=== PATIENT | male | born 1990 ===

== ENCOUNTER 2017-07-04 18:18 | Emergency (ER) | payer MEDICAID ==
[2017-07-04 18:25] VITALS: TEMP 98.1
[2017-07-04] MEDS ORDERED: Albuterol-Ipratrop 3 mg / 0.5 (3 ml) UD ONE (18:26)
[2017-07-04] MEDS ORDERED: Magnesium Sulfate 2 GM in Sodium Chloride 0.9% 100 ML IVPB ONE (18:29)
[2017-07-04] MEDS ORDERED: Sodium Chloride 0.9% 500 ML IV STA (18:30)
[2017-07-04] MEDS: Albuterol-Ipratrop 3 mg / 0.5 (3 ml) UD IH SCH ×3 (18:37→19:06)
[2017-07-04 18:49] LABS: BASO # 0.03 K/mm3 (0.0-2.0); BASO % 0.5 % (0.0-3.0); EOS # 0.5 (0.0-0.7); EOS % 9.3 % (1.5-5.0); GRAN # 1.93 (1.4-6.5); GRAN % 33.8 % (50.0-68.0); HEMOGLOBIN 13.8 g/dL (14.0-18.0); LYMPH # 2.7 (1.2-3.4); MEAN CELL VOLUME 84.1 fl (80.0-105.0); MEAN CORPUSCULAR HEMOGLOBIN 28.1 pg (25.0-35.0); MEAN CORPUSCULAR HGB CONC 33.4 g/dl (31.0-37.0); MEAN PLATELET VOLUME 9.7 fl (7.0-11.0); MONO # 0.5 (0.1-0.6); MONO % 8.4 % (1.0-6.0); RBC 4.91 10^6/uL (3.5-6.1); RED CELL DISTRIBUTION WIDTH 12.8 % (11.5-14.5); WHITE BLOOD COUNT 5.7 10^3/ul (4.5-11.0)
--- NOTE | 2017-07-04 19:04 | ED PDOC ---
Arrival/HPI <Gavin Pantoja - Last Filed: 07/04/17 20:23> - General Historian: Patient - History of Present Illness Time/Duration: < week (5 days) Symptom Onset: Sudden Symptom Course: Unchanged <Migue Baird - Last Filed: 07/06/17 09:32> - General Chief Complaint: Shortness Of Breath Time Seen by Provider: 07/04/17 18:29 - History of Present Illness Narrative History of Present Illness (Text): 07/04/17 18:26 27 year old male, with past medical history of chronic asthma, presents to the emergency department complaining of cough and asthma exacerbation for the past 5 days. Patient reports experiencing congestion with associated thick productive cough with wheezing. Denies of any fever, chills, chest pain, shortness of breath, or any other complaints at this time. (Migue Baird) Past Medical History - Provider Review Nursing Documentation Reviewed: Yes - Infectious Disease Hx of Infectious Diseases: None - Cardiac Hx Cardiac Disorders: No - Pulmonary Hx Respiratory Disorders: Yes Hx Asthma: Yes - Neurological Hx Neurological Disorder: No - HEENT Hx HEENT Disorder: No - Renal Hx Renal Disorder: No - Endocrine/Metabolic Hx Endocrine Disorders: No - Hematological/Oncological Hx Blood Disorders: No - Integumentary Hx Dermatological Disorder: No - Musculoskeletal/Rheumatological Hx Musculoskeletal Disorders: No - Gastrointestinal Hx Gastrointestinal Disorders: No - Genitourinary/Gynecological Hx Genitourinary Disorders: No - Psychiatric Hx Psychophysiologic Disorder: No Hx Substance Use: No - Anesthesia Hx Anesthesia: No Hx Anesthesia Reactions: No <Migue Baird - Last Filed: 07/06/17 09:32> Family/Social History - Physician Review Nursing Documentation Reviewed: Yes Family/Social History: No Known Family HX Smoking Status: Never Smoked Hx Alcohol Use: Yes Frequency of alcohol use: Socially Hx Substance Use: No <Migue Baird - Last Filed: 07/06/17 09:32> Allergies/Home Meds <Gavin Pantoja - Last Filed: 07/04/17 20:23> <Migue Baird - Last Filed: 07/06/17 09:32> Allergies/Adverse Reactions: Allergies No Known Allergies Allergy (Verified 07/04/17 18:25) Home Medications: Home Meds Medication Instructions Recorded Confirmed Albuterol Sulfate [Proair Hfa] 2 puff IH PRN PRN 07/04/17 07/04/17 Review of Systems - Physician Review All systems were reviewed & negative as marked: Yes - Review of Systems Constitutional: absent: Fatigue, Fevers, Night Sweats Eyes: absent: Vision Changes ENT: Sinus Congestion (associated with cough). absent: Hearing Changes, Rhinorrhea Respiratory: Cough (thick productive cough), Sputum, Wheezing. absent: SOB Cardiovascular: absent: Chest Pain Gastrointestinal: absent: Abdominal Pain, Nausea, Vomiting Skin: absent: Rash, Pruritis Neurological: absent: Headache, Dizziness Psychiatric: absent: Anxiety, Depression <Migue Baird Q - Last Filed: 07/06/17 09:32> Physical Exam Vital Signs Reviewed: Yes Temperature: Afebrile Blood Pressure: Normal Pulse: Regular Respiratory Rate: Normal Appearance: Positive for: Well-Appearing Pain Distress: None Mental Status: Positive for: Alert and Oriented X 3 - Systems Exam Head: Present: Atraumatic, Normocephalic Pupils: Present: PERRL Extroacular Muscles: Present: EOMI Conjunctiva: Present: Normal Mouth: Present: Moist Mucous Membranes Neck: Present: Normal Range of Motion Respiratory/Chest: Present: Wheezes, Decreased Breath Sounds (bilaterally). No : Respiratory Distress, Accessory Muscle Use, Rales, Retracting, Rhonchi, Tachypneic, Tender to Palpation Cardiovascular: Present: Regular Rate and Rhythm, Normal S1, S2, Other (no pedal edema). No: Murmurs Abdomen: Present: Normal Bowel Sounds. No: Tenderness, Distention, Peritoneal Signs Back: Present: Normal Inspection Upper Extremity: Present: Normal Inspection. No: Cyanosis, Edema Lower Extremity: Present: Normal Inspection. No: Edema, CALF TENDERNESS, Ava' s Sign Neurological: Present: GCS=15, Speech Normal, Motor Func Grossly Intact, Gait Normal, Memory Normal Skin: Present: Warm, Dry, Normal Color. No: Rashes Psychiatric: Present: Alert, Oriented x 3, Normal Insight, Normal Concentration <Migue Baird Q - Last Filed: 07/06/17 09:32> Vital Signs Temp Pulse Resp BP Pulse Ox 07/04/17 20:13 97 H 18 133/64 98 07/04/17 19:00 89 18 147/83 100 07/04/17 18:30 28 H 98 07/04/17 18:23 98.1 F 92 H 22 147/83 97 Medical Decision Making <Gavin Pantoja - Last Filed: 07/04/17 20:23> - RAD Interpretation Investment Banking Analyst: Radiologist <Migue Baird - Last Filed: 07/06/17 09:32> ED Course and Treatment: 07/04/17 18:30 Impression: 27 year old male with cough and excessive asthma exacerbation. Physical exam shows bilateral decreased air exchange with wheezing. Plan: -- Chest X-ray -- Labs -- Magnesium Sulfate IV Fluids -- SOLU-Medrol -- IV Fluids -- Reassess and disposition 07/04/17 19:34 -Labs are non-significant -Chest xray show no acute findings -Wheezing resolved, bilateral clear to auscultate, room air saturation above 96 % , clinically and vitally stable for outpatient follow up. -Azithromycin 500mg po ordered. 07/04/17 19:47 -Pt. received 1gm of magnesium sulfate with no full dose as he wants to be discharged home, bilateral lung is clear to auscultate, no wheezing/rhonchi. -Discharge home with azithromycin, prednisone, albuterol MDI, zyrtec, stop smoking, follow up with your own pmd within 2 days, return to the ER for any new or worsening signs or symptoms. (Migue Baird) - Lab Interpretations Lab Results: 07/04/17 18:30 07/04/17 18:30 Lab Results 07/04/17 18:30: WBC 5.7, RBC 4.91, Hgb 13.8 L, Hct 41.3 L, MCV 84.1, MCH 28.1, MCHC 33.4, RDW 12.8, Plt Count 205, MPV 9.7, Gran % 33.8 L, Lymph % (Auto) 48.0 H, [place] % (Auto) 8.4 H, Eos % (Auto) 9.3 H, Baso % (Auto) 0.5, Gran # 1.93, Lymph # 2.7, [place] # 0.5, Eos # 0.5, Baso # 0.03 07/04/17 18:30: Sodium 143, Potassium 3.6, Chloride 103, Carbon Dioxide 27, Anion Gap 16, BUN 12, Creatinine 0.8, Est GFR ( Amer) > 60, Est GFR (Non- Af Amer) > 60, Random Glucose 109, Calcium 9.6, Total Bilirubin 0.7, AST 61 H, ALT 102 H, Alkaline Phosphatase 67, Total Protein 7.7, Albumin 4.6, Globulin 3.1 , Albumin/Globulin Ratio 1.5 - RAD Interpretation Radiology Orders: 07/04/17 18:29 CHEST PORTABLE [RAD] Stat no active disease (Migue Baird) - Medication Orders Current Medication Orders: Discontinued Medications Albuterol/Ipratropium (Duoneb 3 Mg/0.5 Mg (3 Ml) Ud) 3 ml IH Q15M KANDACE Stop: 07/04/17 19:01 Last Admin: 07/04/17 19:06 Dose: 3 ml Azithromycin (Zithromax) 500 mg PO STAT STA PRN Reason: Protocol Stop: 07/04/17 19:34 Last Admin: 07/04/17 20:23 Dose: 500 mg Magnesium Sulfate 2 gm/ Sodium (Chloride) 104 mls @ 102 mls/hr IVPB ONCE ONE Stop: 07/04/17 19:30 Last Admin: 07/04/17 19:22 Dose: 102 mls/hr eMAR Start Stop Document 07/04/17 19:22 YP (Rec: 07/04/17 19:22 YP [id number]) Intravenous Solution Start Date 07/04/17 Start Time 19:22 End Date 07/04/17 End time 20:24 Total Infusion Time 62 Sodium Chloride (Sodium Chloride 0.9%) 500 mls @ 999 mls/hr IV .Q31M STA Stop: 07/04/17 19:00 Last Admin: 07/04/17 18:40 Dose: 999 mls/hr eMAR Start Stop Document 07/04/17 18:40 MS (Rec: 07/04/17 18:41 MS [id number]) Intravenous Solution Start Date 07/04/17 Start Time 18:40 End Date 07/04/17 Methylprednisolone (Solu-Medrol) 125 mg IVP STAT STA Stop: 07/04/17 18:30 Last Admin: 07/04/17 18:36 Dose: 125 mg IVP Administration Document 07/04/17 18:36 MS (Rec: 07/04/17 18:37 MS [id number]) Charges for Administration # of IVP Administrations 1 - PA / [employer] / Resident Statement REBECCA has reviewed & agrees with the documentation as recorded. REBECCA has examined the patient and agrees with the treatment plan. <Gavin Pantoja - Last Filed: 07/04/17 20:23> - PA / [employer] / Resident Statement REBECCA has reviewed & agrees with the documentation as recorded. - Scribe Statement The provider has reviewed the documentation as recorded by the Scribe <Migue Baird - Last Filed: 07/06/17 09:32> - Scribe Statement Danica Ruggiero Provider Scribe Attestation: All medical record entries made by the Scribe were at my direction and personally dictated by me. I have reviewed the chart and agree that the record accurately reflects my personal performance of the history, physical exam, medical decision making, and the department course for this patient. I have also personally directed, reviewed, and agree with the discharge instructions and disposition. (Migue Baird) Disposition/Present on Arrival <Gavin Pantoja - Last Filed: 07/04/17 20:23> - Present on Arrival Any Indicators Present on Arrival: No History of DVT/PE: No History of Uncontrolled Diabetes: No Urinary Catheter: No History of Decub. Ulcer: No History Surgical Site Infection Following: None - Disposition Have Diagnosis and Disposition been Completed?: Yes Disposition Time: 19:48 Patient Plan: Discharge <Migue Baird - Last Filed: 07/06/17 09:32> - Disposition Diagnosis: Asthma exacerbation, Bronchitis Disposition: HOME/ ROUTINE Condition: IMPROVED Discharge Instructions (ExitCare): Acute Bronchitis (ED) Print Language: VIET[place]ESE Additional Instructions: -Discharge home with azithromycin, prednisone, albuterol MDI, zyrtec, stop smoking, follow up with your own pmd within 2 days, return to the ER for any new or worsening signs or symptoms. Prescriptions: Albuterol HFA [Ventolin HFA 90 mcg/actuation (8 g)] 2 puff IH [id number] PRN #1 in PRN Reason: Other Azithromycin 250 mg PO DAILY #4 tablet Cetirizine HCl [Zyrtec] 10 mg PO DAILY #10 capsule Prednisone 50 mg PO DAILY #5 tablet Referrals: [facility] at [facility] [place] [Outside] - Follow up with primary Forms: [employer] ([place]), WORK NOTE
[2017-07-04 19:06] LABS: ALB/GLOB RATIO 1.5 (1.1-1.8); ALBUMIN 4.6 g/dL (3.0-4.8); ALT/SGPT 102 U/L (7-56); AST/SGOT 61 U/L (17-59); BLOOD UREA NITROGEN 12 mg/dL (7-21); CALCIUM 9.6 mg/dL (8.4-10.5); GFR AFRICAN-AMERICAN > 60; GFR NON-AFRICAN AMERICAN > 60
[2017-07-04 19:19] VITALS: RESP 18
[2017-07-04 20:14] VITALS: BP 133/64; PULSE 97; O2SAT 98
--- NOTE | 2017-07-05 08:26 | RAD ---
HISTORY: cough and wheezing COMPARISON: No prior. FINDINGS: LUNGS: No active pulmonary disease. PLEURA: No significant pleural effusion identified, no pneumothorax apparent. CARDIOVASCULAR: Normal. OSSEOUS STRUCTURES: No significant abnormalities. VISUALIZED UPPER ABDOMEN: Normal. OTHER FINDINGS: None. IMPRESSION: No active disease.
== END 2017-07-04 20:30 | disposition home or self-care (01) ==
LOC: ED 18:18
DX: J45.901 Unspecified asthma with (acute) exacerbation (principal)
CPT/HCPCS: 71045; 80053; 85025; 96365; 96375; 99285; J2930; J3475; J7040